=== PATIENT | male | born 1990 | race Caucasian/White ===

== ENCOUNTER 2016-11-06 19:59 | Emergency (ER) | payer OTHER ==
[~2016-11-06] VITALS: Ht 193 cm; Wt 86.0 kg
[~2016-11-06 19:59] MED LIST: ALBUTEROL SULF8.5 GM IH; AMOXICILLIN500 MG PO; AUGMENTIN875 MG PO; CLEOCIN300 MG PO; FLEXERIL10 MG PO; FLEXERIL5 MG PO; HYDROCODON-ACE1 EAC7 PO; INDOCIN25 MG PO; LIDOCAINE20 MG/1 M5 PO; LORTAB 5-325 M1 EACH PO; MOTRIN600 MG PO; MOTRIN800 MG PO; NAPROSYN500 MG PO; NAPROXEN500 MG PO; NORCO 5/3251 TABLET PO; NORCO 7.5/321 TABLET PO; PERCOCET 5/31 TABLET PO; PREDNISONE50 MG PO; TESSALON PERLE100 MG PO; VALIUM5 MG PO; VICODIN,LORT1 TABLET PO; ZITHROMAX Z-PA250 MG PO; ZOFRAN4 MG PO; denies home meds
[2016-11-06] MEDS ORDERED: XANAX0.25 MG PO (20:21)
[2016-11-06 20:34] VITALS: BP 177/72
== END 2016-11-06 20:38 | disposition home or self-care (01) ==
LOC: EME 19:59
DX: F41.9 Anxiety disorder, unspecified (principal); F17.200 Nicotine dependence, unspecified, uncomplicated
CPT/HCPCS: 99281; 99283

== ENCOUNTER 2017-11-05 14:24 | Emergency (ER) | payer OTHER ==
[~2017-11-05] VITALS: Ht 193 cm; Wt 73.4 kg
[~2017-11-05 14:24] MED LIST changes: +XANAX0.25 MG PO
[2017-11-05 16:12] LABS: HEMATOCRIT 43.4 % (38.0-50.0); HEMOGLOBIN 15.2 G/DL (12.5-16.6); MCH 31.3 PG (29.0-34.0); MCV 89.3 FL (86-99); PLATELET COUNT 212 K/uL (156-360); RBC DIS.WIDTH-CV 12.1 % (11.8-14.6); RBC DIS.WIDTH-SD 39.9 % (39-53); RED BLOOD COUNT 4.86 M/uL (4.00-5.50); WHITE BLOOD COUNT 10.9 K/uL (4.1-10.2)
[2017-11-05 16:26] LABS: ALBUMIN 4.2 g/dL (3.2-4.8); CHLORIDE 105 mEq/L (99-109); POTASSIUM 4.2 mEq/L (3.7-5.4); SODIUM 142 mEq/L (136-147)
[2017-11-05 16:28] LABS: GLUCOSE 105 mg/dL (70-99); TOTAL PROTEIN 6.5 g/dL (6.4-8.3)
[2017-11-05 16:30] LABS: TOTAL BILIRUBIN 0.6 mg/dL (0.0-1.0)
[2017-11-05 16:31] LABS: SERUM ETHYL ALCOHOL < 10 mg/dL
[2017-11-05 16:32] LABS: GFR ESTIMATE (CALCULATED) > 59 mL/min/ (58.99-99999)
[2017-11-05 16:33] LABS: ALKALINE PHOSPHATASE 69 IU/L (3-129); AST (GOT) 43 IU/L (2-34)
[2017-11-05 16:35] LABS: SALICYLATE < 5.0 MG/DL (15-30); UREA NITROGEN (BUN) 8 mg/dL (9-23)
[2017-11-05 16:36] LABS: ACETAMINOPHEN (TYLENOL) < 10 mcg/mL (10-30); ALT (GPT) 40 IU/L (3-49); CREATINE KINASE 69 IU/L (1-294)
[2017-11-05 16:43] LABS: TROP-I INTERPRETATION NEGATIVE; TROPONIN-I < 0.01 ng/mL (0.0-0.30)
[2017-11-05] MEDS ORDERED: NARCAN4 MG NS (17:17)
[2017-11-05 17:34] VITALS: BP 138/92
== END 2017-11-05 17:35 | disposition home or self-care (01) ==
LOC: EME 14:24
PROVIDERS: Emergency Medicine
DX: T40.1X1A Poisoning by heroin, accidental (unintentional), initial encounter (principal); F32.9 Major depressive disorder, single episode, unspecified; M41.9 Scoliosis, unspecified; F17.200 Nicotine dependence, unspecified, uncomplicated
CPT/HCPCS: 80053; 81003; 82550; 84484; 85027; 93005; 99281; 99285; G0480; J7030